=== PATIENT | male | born 1940 | race Caucasian/White ===

== ENCOUNTER 2018-04-05 14:24 | Emergency (ER) | payer MEDICARE, BC ==
--- NOTE | 2018-04-05 16:59 | EDM.PDOC ---
ED HPI GENERAL MEDICAL PROBLEM - General Chief Complaint: Neurological Problem Stated Complaint: SYNCOPE Time Seen by Provider: 04/05/18 15:18 Source of Information: Reports: Patient, Family History Limitations: Reports: No Limitations - History of Present Illness INITIAL COMMENTS - FREE TEXT/NARRATIVE: This is a 78 y/o M that comes in today for left ear mild pain accompanied with dizziness/light-headedness. He only has the light-headedness while walking and is fine when laying down. He states he feels his "head is plugged up" and can hear his hearing aid ringing. He did not have any trauma to the ear recently, but he does admit to using Q-tips to clean out wax. He denies any recent F/C, CP , SOB, N/V/D. He does have some mild sinus congestion and they just picked up a prescription for Flonase today but he has yet to use it. - Related Data Allergies Allergy/AdvReac Type Severity Reaction Status Date / Time shellfish derived Allergy Rash Verified 12/07/14 00:40 contrast dye Allergy Confusion Uncoded 12/07/14 00:40 Home Meds: Home Meds Isosorbide Mononitrate [Isosorbide Mononitrate ER] 60 mg PO DAILY 12/07/14 [ History] Nitroglycerin [Nitrostat] 0.4 mg PO DAILY PRN 12/07/14 [History] Omeprazole 20 mg PO DAILY 12/07/14 [History] Escitalopram [Lexapro] 20 mg PO DAILY 04/05/18 [History] Multivitamin with Minerals [Multiple Vitamin] 1 tab PO DAILY 04/05/18 [History] Past Medical History HEENT History: Reports: Cataract, Impaired Vision Other HEENT History: Wears glasses Cardiovascular History: Reports: High Cholesterol, Hypertension, [place] Other Cardiovascular History: pacemaker Respiratory History: Reports: Sleep Apnea Other Genitourinary History: prostate CA with seeds implant in 2001 Musculoskeletal History: Reports: Osteoarthritis Neurological History: Reports: TIA Endocrine/Metabolic History: Reports: Hyperthyroidism Other Endocrine/Metabolic History: graves disease Oncologic (Cancer) History: Reports: Prostate Dermatologic History: Reports: Melanoma - Past Surgical History HEENT Surgical History: Reports: Cataract Surgery GI Surgical History: Reports: Hernia, Inguinal Other Male Surgeries/Procedures: Prostate surgery Social & Family History - Tobacco Use Smoking Status *Q: Never Smoker - Recreational Drug Use Recreational Drug Use: No ED ROS ENT - Review of Systems Review Of Systems: ROS reveals no pertinent complaints other than HPI. ED EXAM, ENT - Physical Exam Exam: See Below Exam Limited By: No Limitations General Appearance: Alert, WD/WN, No Apparent Distress Eye Exam: Bilateral Eye: EOMI, Normal Inspection, PERRL Ears: Normal External Exam, Normal Canal, Normal TMs (R TM only; cannot see left TM d/t cerumen), Hearing Loss (wears hearing aids), TM Obscured by Cerumen (left ear), Cerumen Impaction (left ear). No: Auricular Tenderness, Mastoid Tenderness Nose: Normal Inspection, Normal Mucousa, No Blood, Other (mucous in nasal passages bilaterally). No: Nasal Swelling, Nasal Tenderness Mouth/Throat: Normal Inspection, Normal Gums, Normal Lips, Normal Oropharynx, Normal Teeth Head: Atraumatic, Normocephalic Neck: Normal Inspection, Supple, Non-Tender, Full Range of Motion Respiratory/Chest: No Respiratory Distress, Lungs Clear, Normal Breath Sounds, No Accessory Muscle Use, Chest Non-Tender Cardiovascular: Normal Peripheral Pulses, Regular Rate, Rhythm, No Edema, No Gallop, No JVD, No Murmur, No Rub Neurological: Alert, Oriented, CN II-XII Intact, Normal Cognition, Normal Gait, Normal Reflexes, No Motor/Sensory Deficits Psychiatric: Normal Affect, Normal Mood Skin: Warm, Dry, Intact, Normal Color, No Rash Course - Vital Signs Last Recorded V/S: Last Vital Signs Temp 97.4 F 04/05/18 14:47 Pulse 65 04/05/18 14:47 Resp 10 L 04/05/18 14:47 BP 138/76 04/05/18 14:47 Pulse Ox 97 04/05/18 14:47 Orthostatic Blood Pressure [ 129/79 Standing] Orthostatic Blood Pressure [ 134/68 Supine] - Orders/Labs/Meds Orders: Active Orders 24 hr Category Date Time Status Ear Irrigation [RC] ASDIRECTED Care 04/05/18 16:44 Active Orthostatic Vital Signs [RC] ASDIRECTED Care 04/05/18 16:59 Active MAGNESIUM [CHEM] Stat Lab 04/05/18 17:15 Stop Req Labs: Laboratory Tests 04/05/18 04/05/18 Range/Units 17:15 17:15 WBC 9.14 H (4.23-9.07) K/mm3 RBC 4.97 (4.63-6.08) M/mm3 Hgb 13.6 L (13.7-17.5) gm/L Hct 42.6 (40.1-51.0) % MCV 85.7 (79.0-92.2) fl MCH 27.4 (25.7-32.2) pg MCHC 31.9 L (32.2-35.5) g/dl RDW Std Deviation 60.8 H (35.1-43.9) fL Plt Count 70 L (163-337) K/mm3 Neut % (Auto) 33.2 L (34.0-67.9) % Lymph % (Auto) 29.8 (21.8-53.1) % [place] % (Auto) 33.9 H (5.3-12.2) % Eos % (Auto) 0.2 L (0.8-7.0) Baso % (Auto) 0.8 (0.1-1.2) % Neut # (Auto) 3.04 (1.78-5.38) K/mm3 Lymph # (Auto) 2.72 (1.32-3.57) K/mm3 [place] # (Auto) 3.10 H (0.30-0.82) K/mm3 Eos # (Auto) 0.02 L (0.04-0.54) K/mm3 Baso # (Auto) 0.07 (0.01-0.08) K/mm3 Manual Slide Review Abnormal smear Sodium 138 (136-145) mEq/L Potassium 4.4 (3.5-5.1) mEq/L Chloride 105 (98-107) mEq/L Carbon Dioxide 24 (21-32) mEq/L Anion Gap 13.4 (5-15) BUN 24 H (7-18) mg/dL Creatinine 1.5 H (0.7-1.3) mg/dL Est Cr Clr Drug Dosing 42.58 mL/min Estimated GFR (MDRD) 45 (>60) mL/min BUN/Creatinine Ratio 16.0 (14-18) Glucose 98 (83-115) mg/dL Calcium 8.9 (8.5-10.1) mg/dL Total Bilirubin 0.7 (0.2-1.0) mg/dL AST 26 (15-37) U/L ALT 24 (16-63) U/L Alkaline Phosphatase 65 (46-116) U/L Total Protein 7.3 (6.4-8.2) g/dl Albumin 3.9 (3.4-5.0) g/dl Globulin 3.4 gm/dL Albumin/Globulin Ratio 1.2 (1-2) - Re-Assessments/Exams Free Text/Narrative Re-Assessment/Exam: 04/05/18 17:05 Ordered ear irrigation for impacted cerumen in left ear. Have also ordered orthostatic vitals, CBC, CMP to check for anemia or any electrolyte abnormalities that could be causing the light-headedness. 04/05/18 18:18 Labs are back and WNL for the most part. There are no signs of anemia or electrolyte abnormality. 04/05/18 18:26 Ear lavage was successful and was able to visualize the TM which is WNL. Just some erythema to the ear canal d/t the lavage. At this time, the workup is negative and is reasonable to send him home. Orthostatics WNL. Departure - Departure Time of Disposition: 18:27 Disposition: Home, Self-Care 01 Condition: Fair Clinical Impression: Cerumen impaction - Discharge Information *PRESCRIPTION DRUG MONITORING PROGRAM REVIEWED*: Not Applicable *COPY OF PRESCRIPTION DRUG MONITORING REPORT IN PATIENT DEMETRIO: Not Applicable Instructions: Earwax Buildup, Adult Referrals: Gurmeet Suarez MD [Primary Care Provider] - Forms: ED Department Discharge Additional Instructions: You were seen in the ED today for left ear cerumen impaction and dizziness/ light headedness. After doing an ear lavage, your ear did not show any sign of infection. Your workup was negative for anemia or electrolyte abnormality as a cause for your light headedness. Follow up with your Primary Care doctor if no improvement in symptoms. Please return to ED if worsening of symptoms or development of Fever/chills. - My Orders Last 24 Hours: My Active Orders 04/05/18 16:44 Ear Irrigation [RC] ASDIRECTED 04/05/18 16:59 Orthostatic Vital Signs [RC] ASDIRECTED 04/05/18 17:15 MAGNESIUM [CHEM] Stat - Assessment/Plan Last 24 Hours: My Active Orders 04/05/18 16:44 Ear Irrigation [RC] ASDIRECTED 04/05/18 16:59 Orthostatic Vital Signs [RC] ASDIRECTED 04/05/18 17:15 MAGNESIUM [CHEM] Stat
[2018-04-05 18:49] VITALS: BP 131/86
== END 2018-04-05 18:45 | disposition home or self-care (01) ==
LOC: JD.ED 14:24
DX: H61.22 Impacted cerumen, left ear (principal); I10 Essential (primary) hypertension; E05.90 Thyrotoxicosis, unspecified without thyrotoxic crisis or storm; Z91.041 Radiographic dye allergy status; Z91.013 Allergy to seafood; Z79.899 Other long term (current) drug therapy
CPT/HCPCS: 36415; 69209; 69210; 80053; 83735; 85025; 99283; 99284-25

== ENCOUNTER 2022-09-04 22:16 | Emergency (ER) | payer MEDICARE, BC ==
[2022-09-04 22:36] VITALS: BP 112/68; PULSE 102
[2022-09-04] MEDS ORDERED: Sodium Chloride 0.9% 1,000 ML IV ONE (22:40)
[2022-09-04] MEDS ORDERED: cefTRIAXone 1 GM in Sodium Chloride 0.9% 100 ML IV ONE (22:40)
[2022-09-04] MEDS ORDERED: Sodium Chloride 0.9% 10 ML Syringe FLUSH PRN (22:40)
[2022-09-05 00:44] LABS: CORONAVIRUS COVID-19 NAA POSITIVE (NEGATIVE)
[2022-09-05] MEDS ORDERED: REMDESIVIR 200 MG in Sodium Chloride 0.9% 250 ML IV ONE (00:51)
[2022-09-05] MEDS ORDERED: REMDESIVIR 100 MG ONE (00:56)
[2022-09-05] MEDS ORDERED: Acetaminophen 325 MG Tab PO ONE (02:02)
== END 2022-09-05 02:20 ==
LOC: JD.ED 22:16
DX: U07.1 COVID-19 (principal); J12.82 Pneumonia due to coronavirus disease 2019; I12.9 Hypertensive chronic kidney disease with stage 1 through stage 4 chronic kidney disease, or unspecified chronic kidney disease; N18.9 Chronic kidney disease, unspecified; D63.1 Anemia in chronic kidney disease; R09.02 Hypoxemia; D69.6 Thrombocytopenia, unspecified; C92.10 Chronic myeloid leukemia, BCR/ABL-positive, not having achieved remission; E78.00 Pure hypercholesterolemia, unspecified; I25.2 Old myocardial infarction; E05.90 Thyrotoxicosis, unspecified without thyrotoxic crisis or storm; Z79.899 Other long term (current) drug therapy; Z86.73 Personal history of transient ischemic attack (TIA), and cerebral infarction without residual deficits; Z91.041 Radiographic dye allergy status; Z91.013 Allergy to seafood; Z88.8 Allergy status to other drugs, medicaments and biological substances; Z95.0 Presence of cardiac pacemaker; Z48.815 Encounter for surgical aftercare following surgery on the digestive system
CPT/HCPCS: 0241U; 36415; 71045; 71045-26; 80053; 81001; 83605; 85007; 85027; 85610; 86140; 87040; 96361; 96365; 99285; 99285-25; A9270-GY; J0696; J3490; J7030

== ENCOUNTER 2022-10-18 13:48 | Emergency (ER) | payer MEDICARE, BC ==
[2022-10-18] MEDS ORDERED: Sodium Chloride 0.9% 10 ML Syringe FLUSH PRN (14:42)
[2022-10-18] MEDS ORDERED: Sodium Chloride 0.9% 1,000 ML IV ONE (15:46)
[2022-10-18 15:59] LABS: CORONAVIRUS COVID-19 NAA NEGATIVE (NEGATIVE)
[2022-10-18] MEDS ORDERED: HYDROmorphone 0.5 MG/0.5 ML Syringe IVPUSH ONE (16:40)
[2022-10-18] MEDS ORDERED: Lactated Ringers 1,000 ML IV ONE (17:26)
[2022-10-18] MEDS ORDERED: Piperacillin/Tazobactam 4.5 GM in Sodium Chloride 0.9% 100 ML IV ONE (17:32)
[2022-10-18] MEDS ORDERED: Sodium Chloride 0.9% 1,000 ML ONE (18:07)
[2022-10-18] MEDS ORDERED: Sodium Chloride 0.9% 1,000 ML IV SCH (18:15)
[2022-10-18 18:33] VITALS: BP 125/90; PULSE 108
== END 2022-10-19 18:40 ==
LOC: JD.ED 13:48
DX: C92.10 Chronic myeloid leukemia, BCR/ABL-positive, not having achieved remission (principal); N28.9 Disorder of kidney and ureter, unspecified; I50.9 Heart failure, unspecified; I10 Essential (primary) hypertension; I25.2 Old myocardial infarction; E05.90 Thyrotoxicosis, unspecified without thyrotoxic crisis or storm; Z20.822 Contact with and (suspected) exposure to COVID-19; Z88.8 Allergy status to other drugs, medicaments and biological substances; Z91.013 Allergy to seafood
CPT/HCPCS: 0241U; 36415; 71045; 83605; 83880; 84484; 85610; 87040; 93005; 96361; 96365; 96375; 99285; J1170; J2543; J3490; J7030; J7120; 93010